=== PATIENT | male | born 1950 ===

== ENCOUNTER 2020-08-11 09:51 | Day surgery (SDC) | payer OTHER ==
[~2020-08-11 09:51] MED LIST: Lactated Ringers 1,000 ML IV SCH; Midazolam 1 MG/ML 2 ML SDV ONE; Propofol 200 MG/20 ML SDV ONE
--- NOTE | 2020-08-11 10:50 | PCM.PREANE ---
Preanesthetic Assessment - Anesthesia/Transfusion/Family Hx Anesthesia History: Prior Anesthesia Without Reaction Family History of Anesthesia Reaction: No Transfusion History: No Prior Transfusion(s) - Review of Systems General: No Symptoms Pulmonary: No Symptoms Cardiovascular: No Symptoms Gastrointestinal: Other (h/o colon polyps, strong family h/o colon cancer) Neurological: No Symptoms Other: Reports: None - Physical Assessment Vital Signs: Last Vital Signs Temp 36 C L 08/11/20 10:22 Pulse 70 08/11/20 10:22 Resp 16 08/11/20 10:22 BP 149/77 H 08/11/20 10:22 Pulse Ox 97 08/11/20 10:22 Height: 5 ft 6 in Weight: 105.233 kg ASA Class: 2 Mental Status: Alert & Oriented x3 Airway Class: Mallampati = 2 Dentition: Reports: Normal Dentition, Ferrum(s) (multiple upper front) Thyro-Mental Finger Breadths: 3 Mouth Opening Finger Breadths: 2 (small mouth) ROM/Head Extension: Limited/Partial Lungs: Clear to Auscultation, Normal Respiratory Effort Cardiovascular: Regular Rate, Regular Rhythm - Allergies Allergies/Adverse Reactions: Allergies Allergy/AdvReac Type Severity Reaction Status Date / Time acetaminophen [From Percocet] Allergy Change Verified 08/11/20 10:36 Mental Status oxycodone [From Percocet] Allergy Change Verified 08/11/20 10:36 Mental Status - Blood Blood Available: No - Anesthesia Plan Pre-Op Medication Ordered: None - Acknowledgements Anesthesia Type Planned: MAC Pt an Appropriate Candidate for the Planned Anesthesia: Yes Alternatives and Risks of Anesthesia Discussed w Pt/Guardian: Yes Pt/Guardian Understands and Agrees with Anesthesia Plan: Yes PreAnesthesia Questionnaire HEENT History: Reports: Hard of Hearing, Other (See Below) Other HEENT History: yses reading glasses, has bilateral hearing aides Cardiovascular History: Reports: High Cholesterol, Hypertension Respiratory History: Reports: Sleep Apnea Other Respiratory History: uses CPAP every night Gastrointestinal History: Reports: Colon Polyp, Diverticulosis, Hemorrhoids Neurological History: Reports: TIA (06/06) Other Neuro History: rt. facial numbness, no residual symptoms from TIA Psychiatric History: Reports: Anxiety Endocrine/Metabolic History: Reports: Obesity/BMI 30+ (BMI 37.4) - Past Surgical History Head Surgeries/Procedures: Reports: None GI Surgical History: Reports: Colonoscopy (3-4, last one 7 years ago), Other (See Below) Other GI Surgeries/Procedures: Hemorrhoidectomy Neurological Surgical History: Reports: C-Spine, Spinal Fusion Other Neurological Surgeries/Procedures: has plate and screws in neck Musculoskeletal Surgical History: Reports: Arthroscopic Knee, Shoulder Surgery Other Musculoskeletal Surgeries/Procedures:: right RTCR, bilateral knee arthroscopies - SUBSTANCE USE Tobacco Use Status *Q: Former Tobacco User Tobacco Use Within Last Twelve Months: No - HOME MEDS Home Medications: Home Meds Aspirin 325 mg PO DAILY 08/07/20 [History] Cholecalciferol (Vitamin D3) [Vitamin D3] 1,000 unit PO DAILY 08/07/20 [History] Gabapentin [Neurontin] 300 mg PO BEDTIME 08/07/20 [History] Losartan Potassium 100 mg PO QAM 08/07/20 [History] Lutein 10 mg PO DAILY 08/07/20 [History] Metoprolol Tartrate 50 mg PO QAM 08/07/20 [History] Multivitamin 1 tab PO DAILY 08/07/20 [History] Sertraline [Zoloft] 50 mg PO DAILY 08/07/20 [History] Simvastatin 10 mg PO BEDTIME 08/07/20 [History] Zolpidem Tartrate [Ambien Cr] 6.25 mg PO BEDTIME 08/07/20 [History] hydroCHLOROthiazide [Hydrochlorothiazide] 12.5 mg PO QAM 08/07/20 [History] - CURRENT (IN HOUSE) MEDS Current Meds: Current Medications Lactated Ringer's (Ringers, Lactated) 1,000 mls @ 125 mls/hr IV [facility]RECTED [facility] Last Admin: 08/11/20 10:26 Dose: 125 mls/hr Documented by: Discontinued Medications Midazolam HCl (Versed 1 Mg/Ml) Confirm Administered Dose 2 mg .ROUTE .STK-MED ONE Stop: 08/11/20 07:12 Propofol (Diprivan 20 Ml) Confirm Administered Dose 600 mg .ROUTE .STK-MED ONE Stop: 08/11/20 07:12
--- NOTE | 2020-08-11 12:44 | PCM.OPNOTE ---
- General Post-Op/Procedure Note Date of Surgery/Procedure: 08/11/20 Operative Procedure(s): Colonoscopy with cold transverse colon and ascending colon, polypectomies Pre Op Diagnosis: Personal history of colon polyps. Strong family history of colon cancer. Post-Op Diagnosis: Ascending colon and distal transverse colon polyps. Pancolonic diverticulosis. Anesthesia Technique: MAC (ASA II) Primary Surgeon: Valdez Jeter Manufacturing Operations Manager: Sanket De Leon Condition: Good Free Text/Narrative:: DICTATION [id number] CPT CODE [id number]
[2020-08-11] MEDS ORDERED: Lactated Ringers 1,000 ML IV SCH (12:45)
--- NOTE | 2020-08-11 13:12 | PCM.POSTAN ---
POST ANESTHESIA ASSESSMENT - MENTAL STATUS Mental Status: Alert, Oriented - VITAL SIGNS Vital Signs: Last Vital Signs Temp 36 C L 08/11/20 10:22 Pulse 53 L 08/11/20 12:52 Resp 16 08/11/20 12:52 BP 116/62 08/11/20 12:52 Pulse Ox 95 08/11/20 12:52 - RESPIRATORY Respiratory Status: Respiratory Rate WNL, Airway Patent, O2 Saturation Stable - CARDIOVASCULAR CV Status: Pulse Rate WNL, Blood Pressure Stable - GASTROINTESTINAL GI Status: No Symptoms - PAIN Pain Score: 0 - POST OP HYDRATION Hydration Status: Adequate & Stable - OBSERVATIONS Free Text/Narrative:: No anesthesia problems
--- NOTE | 2020-08-11 14:29 | OR ---
SURGEON: Valdez Jeter M.D. DATE OF PROCEDURE: 08/11/2020 OPERATION PERFORMED: Colonoscopy with cold transverse colon and ascending colon polypectomies. PRIMARY SURGEON: Valdez Jeter MD. ANESTHESIA: MAC ASA CLASSIFICATION: II. PREOPERATIVE DIAGNOSES: 1. Personal history of colon polyps. 2. Strong family history of colon cancer. POSTOPERATIVE DIAGNOSES: 1. Transverse colon polyp. 2. Proximal ascending colon polyp. 3. Pancolonic diverticulosis. DESCRIPTION OF PROCEDURE: The patient was taken to the endoscopy room and positioned on the endoscopy table in the left lateral decubitus position. Time-out was called for appropriate identification of the patient and procedure. Monitored anesthesia care was provided. The colonoscope was inserted into the rectum and advanced with minimal difficulty to the cecum. The cecum was identified by internal landmarks and external pressure. The colonoscope was retroflexed to visualize the ascending colon from below, then straightened and slowly withdrawn. One polyp was encountered in the proximal ascending colon and removed with multiple bites of the cold biopsy forceps. Diverticular changes were noted throughout the entire length of the colon with the most serious area of involvement being the sigmoid colon. The ascending colon, hepatic flexure, and proximal and mid transverse colon showed only diverticular changes. No polyps were encountered until 1 polyp was encountered in the distal transverse colon. This was also removed with the cold biopsy forceps. The splenic flexure, descending colon, sigmoid colon, and rectum were also very well visualized. No other polyps were identified. Again, diverticular changes were noted, particularly in the sigmoid colon. Once the colonoscope was withdrawn to the rectum, it was retroflexed to visualize the anal orifice from above. No polyps or tumors were seen. However, the patient did have some internal hemorrhoids that were not acutely inflamed or bleeding. The colonoscope was then straightened, the rectum aspirated, and the colonoscope removed. The patient tolerated the procedure well and was taken to recovery room in satisfactory condition. DAVID / BUDDY /[id number]
== END 2020-08-11 13:15 | disposition home or self-care (01) ==
LOC: MW.SDS 09:51
PROVIDERS: ATTEND Surgery
DX: Z12.11 Encounter for screening for malignant neoplasm of colon (principal); D12.2 Benign neoplasm of ascending colon; D12.3 Benign neoplasm of transverse colon; K57.30 Diverticulosis of large intestine without perforation or abscess without bleeding; K64.8 Other hemorrhoids; I10 Essential (primary) hypertension; F41.9 Anxiety disorder, unspecified; E66.9 Obesity, unspecified; Z68.37 Body mass index [BMI] 37.0-37.9, adult; E78.00 Pure hypercholesterolemia, unspecified; Z88.5 Allergy status to narcotic agent; Z88.8 Allergy status to other drugs, medicaments and biological substances; Z80.0 Family history of malignant neoplasm of digestive organs; Z79.899 Other long term (current) drug therapy; Z79.82 Long term (current) use of aspirin; Z98.890 Other specified postprocedural states
CPT/HCPCS: 45380; J2250; J2704; J7120